=== PATIENT | female | born 1995 | race African-American/Black ===

== ENCOUNTER 2016-04-10 10:07 | Emergency (ER) | payer MEDICAID ==
[~2016-04-10] VITALS: Ht 152.4 cm; Wt 70.8 kg
[~2016-04-10 10:07] MED LIST: PREN-96 PO
[2016-04-10 10:14] VITALS: BP 118/70
== END 2016-04-10 15:08 | disposition home or self-care (01) ==
LOC: ER 10:07
DX: O46.92 Antepartum hemorrhage, unspecified, second trimester (principal); F12.10 Cannabis abuse, uncomplicated; Z3A.21 21 weeks gestation of pregnancy
CPT/HCPCS: 36415; 76805; 84702

== ENCOUNTER 2018-04-18 06:44 | Emergency (ER) | payer MEDICAID ==
[~2018-04-18] VITALS: Ht 147.3 cm; Wt 61.7 kg
[2018-04-18 08:19] LABS: Urine Bacteria NONE SEEN /hpf (None Seen); Urine Blood TRACE /uL (Negative); Urine Mucus FEW (None Seen); Urine Specific Gravity 1.026 (1.001-1.035); Urine WBC 1 /hpf (0 - 5)
[2018-04-18 08:39] LABS: Basophils # (auto) 0.1 uL; Basophils % (auto) 0.7 % (0.0-2.0); Eosinophils # (auto) 0.1 uL; Hematocrit 40.3 % (36.0-46.0); Hemoglobin 13.9 g/dL (12.2-16.2); Lymphocytes # (auto) 2.1 uL; Lymphocytes % (auto) 20.3 % (10.0-50.0); Mean Corpuscular Hemoglobin 32.1 pg (28.0-32.0); Mean Corpuscular Hgb Conc. 34.3 g/dL (32.0-36.0); Mean Corpuscular Volume 93.6 fL (80.0-100.0); Monocytes # (auto) 0.5 uL; Monocytes % (auto) 4.5 % (0.0-12.0); Neutrophils # (auto) 7.5 uL; Neutrophils % (auto) 73.5 % (37.0-80.0); Nucleated Red Blood Cells % 0.1 %; Platelet Count (auto) 257 10^3/uL (140-450); Red Blood Cells 4.31 10^6/uL (4.0-5.20); White Blood Cell 10.3 10^3/uL (4.4-10.8)
[2018-04-18 08:56] LABS: Albumin 3.6 g/dL (3.4-5.0); BUN/Creatinine Ratio 11.9; Calcium 8.6 mg/dL (8.5-10.1); Potassium 3.5 mmol/L (3.5-5.1)
[2018-04-18 08:58] LABS: Bilirubin, Total 0.5 mg/dL (0.2-1.0); Total Protein 7.5 g/dL (6.4-8.2)
[2018-04-18] MEDS ORDERED: SODIUM CHLORIDE 0.9% 1,000 ML IVB ONE (09:06)
[2018-04-18] MEDS ORDERED: ONDANSETRON HCL 4 MG/2 ML VIAL IV ONE (09:15)
[2018-04-18 10:45] VITALS: BP 127/66
== END 2018-04-18 11:26 | disposition home or self-care (01) ==
LOC: ER 06:44
DX: O20.0 Threatened abortion (principal); O21.9 Vomiting of pregnancy, unspecified; O26.891 Other specified pregnancy related conditions, first trimester; F12.10 Cannabis abuse, uncomplicated; R51 Headache; Z3A.01 Less than 8 weeks gestation of pregnancy
CPT/HCPCS: 36415; 76801; 80053; 81001; 81025; 84702; 85025; 94761; 96361; 96374; 99284; J2405; J7030

== ENCOUNTER 2018-05-29 09:10 | Emergency (ER) | payer MEDICAID ==
[~2018-05-29] VITALS: Ht 157.5 cm; Wt 68.0 kg
[2018-05-29 09:33] VITALS: BP 103/76
[2018-05-29 10:35] LABS: Urine WBC None Seen /hpf (0 - 5)
[2018-05-29 10:51] LABS: Basophils # (auto) 0 uL; Basophils % (auto) 0.2 % (0.0-2.0); Eosinophils # (auto) 0.1 uL; Eosinophils % (auto) 1.1 % (0.0-7.0); Hematocrit 37.8 % (36.0-46.0); Lymphocytes # (auto) 2.3 uL; Lymphocytes % (auto) 18.9 % (10.0-50.0); Mean Corpuscular Hgb Conc. 34.3 g/dL (32.0-36.0); Mean Corpuscular Volume 93.3 fL (80.0-100.0); Monocytes # (auto) 0.5 uL; Monocytes % (auto) 4.3 % (0.0-12.0); Neutrophils % (auto) 75.5 % (37.0-80.0); Platelet Count (auto) 255 10^3/uL (140-450); Red Blood Cells 4.05 10^6/uL (4.0-5.20); Red Cell Distribution Width 11.9 % (11.8-14.3)
[2018-05-29 11:15] LABS: Albumin 3.1 g/dL (3.4-5.0); Calcium 9.2 mg/dL (8.5-10.1); Potassium 3.9 mmol/L (3.5-5.1)
[2018-05-29 11:18] LABS: BUN/Creatinine Ratio 12.3; Bilirubin, Total 0.4 mg/dL (0.2-1.0); Total Protein 7.5 g/dL (6.4-8.2)
[2018-05-29 11:29] LABS: Urine Amorphous Crystal MANY /hpf (None Seen); Urine Bacteria NONE SEEN /hpf (None Seen); Urine Blood TRACE /uL (Negative); Urine Mucus FEW (None Seen); Urine Specific Gravity 1.021 (1.001-1.035)
== END 2018-05-29 15:30 | disposition home or self-care (01) ==
LOC: ER 09:10
DX: O26.892 Other specified pregnancy related conditions, second trimester (principal); R10.9 Unspecified abdominal pain; R19.7 Diarrhea, unspecified; O21.9 Vomiting of pregnancy, unspecified; Z3A.15 15 weeks gestation of pregnancy
CPT/HCPCS: 36415; 80053; 81001; 84702; 85025

== ENCOUNTER 2023-05-07 08:47 | Emergency (ER) | payer MEDICAID ==
[~2023-05-07] VITALS: Ht 149.9 cm; Wt 66.3 kg
[2023-05-07] MEDS: ONDANSETRON ODT 4 MG TAB PO ONE (09:04)
[2023-05-07 09:23] LABS: Basophils # (auto) 0 10 ^3/uL (0-0.2); Basophils % (auto) 0.3 % (0.0-2.0); Eosinophils # (auto) 0 10 ^3/uL (0-0.8); Eosinophils % (auto) 0.1 % (0.0-7.0); Hematocrit 39.2 % (36.0-46.0); Hemoglobin 13.1 g/dL (12.2-16.2); Lymphocytes # (auto) 1.9 10 ^3/uL (0.4-5.4); Mean Corpuscular Hemoglobin 31.4 pg (28.0-32.0); Mean Corpuscular Hgb Conc. 33.3 g/dL (32.0-36.0); Mean Corpuscular Volume 94.3 fL (80.0-100.0); Monocytes # (auto) 0.4 10 ^3/uL (0-1.3); Monocytes % (auto) 2.9 % (0.0-12.0); Neutrophils # (auto) 11.4 10 ^3/uL (1.6-8.6); Neutrophils % (auto) 82.7 % (37.0-80.0); Nucleated Red Blood Cells % 0.1 %; Red Blood Cells 4.16 10^6/uL (4.0-5.20); Red Cell Distribution Width 12.5 % (11.8-14.3); White Blood Cell 13.7 10^3/uL (4.4-10.8)
[2023-05-07 09:31] LABS: Alanine Aminotransferase 18 U/L (7-40); Albumin 4.5 g/dL (3.2-4.8); Alkaline Phosphatase 72 U/L (46-116); Anion Gap 11 (5-15); Aspartate Aminotransferase 19 U/L (13-40); BUN/Creatinine Ratio 17.3 (10.0-20.0); Bilirubin, Total 0.4 mg/dL (0.2-1.0); Blood Urea Nitrogen 14 mg/dL (9-23); Calcium 9.6 mg/dL (8.5-10.1); Carbon Dioxide 21 mmol/L (20-30); Chloride 108 mmol/L (98-107); Glucose 117 mg/dL (74-106); Potassium 3.9 mmol/L (3.5-5.1); Sodium 140 mmol/L (136-145); Total Protein 7.2 g/dL (5.7-8.2)
[2023-05-07] MEDS: SODIUM CHLORIDE 0.9% 1,000 ML IV ONE (09:31)
[2023-05-07 09:47] VITALS: BP 131/55; PULSE 75; RESP 18; O2SAT 98
[2023-05-07] MEDS: THIAMINE 100mg/ml INJ (200mg/2ml VIAL) IV ONE (09:47)
[2023-05-07] MEDS: cefTRIAXone 1GM/50ML D5W 50 ML IV ONE (11:39)
[2023-05-07 12:01] LABS: Urine WBC None Seen /hpf (0 - 5)
[2023-05-07] MEDS ORDERED: AMOX500T3 PO (12:11)
[2023-05-07 12:53] LABS: Amphetamine Screen, Urine Neg (NEGATIVE); Barbiturate Scree,Urine Neg (NEGATIVE); Benzodiazephine Screen, Urine Neg (NEGATIVE); Cocaine Screen, Urine Neg (NEGATIVE); Opiate Scree,Urine Neg (NEGATIVE)
[2023-05-07 12:54] LABS: Cannabinoid Screen, Urine Pos (NEGATIVE); Phencyclidine Screen, Urine Neg (NEGATIVE)
[2023-05-07 13:17] LABS: Urine Bacteria NONE SEEN /hpf (None Seen); Urine Blood 1+ /uL (Negative); Urine Budding Yeast LOADED /hpf (None Seen); Urine Clarity CLOUDY (Clear); Urine Color Yellow (Yellow); Urine Mucus FEW (None Seen); Urine Protein, UAD TRACE (Negative); Urine Specific Gravity 1.028 (1.001-1.035); Urine Urobilinogen Normal (Negative); Urine pH 5.5 (5.0-8.0)
== END 2023-05-07 12:24 | disposition home or self-care (01) ==
LOC: ER 08:47
DX: F10.10 Alcohol abuse, uncomplicated (principal); R10.2 Pelvic and perineal pain; I88.0 Nonspecific mesenteric lymphadenitis; F12.10 Cannabis abuse, uncomplicated; Z79.899 Other long term (current) drug therapy; Y90.8 Blood alcohol level of 240 mg/100 ml or more
CPT/HCPCS: 36415; 74176; 80053; 80307; 80320; 81001; 84702; 85025; 96361; 96365; 96375; 99285; J0696; J3411; J7030; Q0162

== ENCOUNTER 2024-05-18 11:39 | Emergency (ER) | payer MEDICAID ==
[~2024-05-18] VITALS: Ht 149.9 cm; Wt 67.6 kg
[~2024-05-18 11:39] MED LIST changes: +AMOX500T3 PO
[2024-05-18 11:50] VITALS: BP 132/88; PULSE 84; RESP 16; O2SAT 97
--- NOTE | 2024-05-18 11:51 | ED.PDOC ---
History of Present Illness HPI Comments 29F presents to the Er w/ no prior Hx associated to the c/c of Abnormal Vaginal Bleeding. Pt reports on the bleeding happening 30-45 minutes ago from 11:45 while being 8 weeks . Pt notes that it was "more than spotting" w/ cramps. Pt denies any pain currently. SHx of . Social Hx of occasional alcohol use and marijuana use, but denies tobacco use. Denies chills, fever, N/V/D, SOB, CP or other associated symptom's, modifiers, or recent injuries or sick contact at this time. Time Seen by MD: 11:45 Primary Care Provider: DENIES Reviewed Notes: Nurses Notes, Medications, Allergies Allergies: Coded Allergies: NO KNOWN ALLERGIES (Unverified , 09/24/12) Home Meds Active Scripts Amoxicillin Trihydrate (Amoxicillin) 500 Mg Tab, 1 TAB PO TID for 5 Days, #15 TAB Prov:ELIZA BERMAN MD 05/07/23 Reported Medications Vit W/ Ferrous Fumara ( One Daily) Daily Tab, 1 TAB PO DAILY, #90 TAB 3 Refills 01/30/14 Information Source: Patient Mode of Arrival: Ambulatory Severity: Moderate Timing: Minutes Duration: Since onset, Minutes Prehospital treatment: None Past Medical History PAST MEDICAL HISTORY: Denies Surgical History: (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 Family History Family History: Reviewed,noncontributory to illness, Unknown Social History Smoker: Non-Smoker Alcohol: Occasionally Drugs: Marijuana Lives In: Home Constitutional: denies: chills, diaphoresis, fatigue, fever, malaise, sweats, weakness, others EENTM: denies: blurred vision, double vision, ear bleeding, ear discharge, ear drainage, ear pain, ear ringing, eye pain, eye redness, hearing loss, mouth pain, mouth swelling, nasal discharge, nose bleeding, nose congestion, nose pain, photophobia, tearing, throat pain, throat swelling, voice changes, others Respiratory: denies: cough, hemoptysis, orthopnea, SOB at rest, shortness of breath, SOB with excertion, stridor, wheezing, others Cardiovascular: denies: chest pain, dizzy spells, diaphoresis, Dyspnea on exertion, edema, irregular heart beat, left arm pain, lightheadedness, palpitations, PND, syncope, others Gastrointestinal: denies: abdomen distended, abdominal pain, blood streaked bowels, constipated, diarrhea, dysphagia, difficulty swallowing, hematemesis, melena, nausea, poor appetite, poor fluid intake, rectal bleeding, rectal pain, vomiting, others Genitourinary: reports: abnormal vagina bleeding, (8weeks); denies: burning, dyspareunia, dysuria, flank pain, frequency, hematuria, incontinence, pain, vagina discharge, urgency, others Neurological: denies: dizziness, fainting, headache, left sided numbness, left sided weakness, numbness, paresthesia, pre-existing deficit, right sided numbness, right sided weakness, seizure, speech problems, tingling, tremors, weakness, others Musculoskeletal: denies: back pain, gout, joint pain, joint swelling, muscle pain, muscle stiffness, neck pain, others Integumetry: denies: bruises, change in color, change in hair/nails, dryness, laceration, lesions, lumps, rash, wounds, others Allergic/Immunocompromised: denies: Difficulty Healing, Frequent Infections, Hives, Itching, others Hematologic/Lymphatic: denies: anemia, blood clots, easy bleeding, easy bruising, swollen glands, others Endocrine: denies: excessive hunger, excessive sweating, excessive thirst, excessive urination, flushing, intolerance to cold, intolerance to heat, unexplained weight gain, unexplained weight loss, others Psychiatric: denies: anxiety, bipolar disorder, depression, hopeless, panic disorder, schizophrenia, sleepless, suicidal, others All Other Systems: Reviewed and Negative Physical Exam General Appearance: No Apparent Distress HEENT: Normal ENT Inspection, Pharynx Normal, TMs Normal Neck: Full Range of Motion, Non-Tender, Normal, Normal Inspection Respiratory: Chest Non-Tender, Lungs Clear, No Accessory Muscle Use, No Respiratory Distress, Normal Breath Sounds Cardiovascular: No Edema, No JVD, No Murmur, No Gallop, Normal Peripheral Pulses, Regular Rate/Rhythm Breast Exam: Deferred Gastrointestinal: No Organomegaly, Non Tender, No Pulsatile Mass, Normal Bowel Sounds, Soft Genitalia: Deferred Pelvic: Deferred Rectal: Deferred Extremities: No calf tenderness, Normal capillary refill, Normal inspection, Normal range of motion, Non-tender, No pedal edema Musculoskeletal : Apperance: Normal Neurologic: Alert, religious educator II-XII nml as Tested, No Motor Deficits, Normal Affect, Normal Mood, No Sensory Deficits Cerebellar Function: Normal Reflexes: Normal Skin: Dry, Normal Color, Warm Lymphatic: No Adenopathy Was a procedure done? Was a procedure done?: No Differential Dx Considerations may include: Threatened , complete , ectopic X-Ray, Labs, Meds, VS Vital Signs Date Time Temp Pulse Resp B/P (MAP) Pulse Ox O2 Delivery O2 Flow Rate FiO2 05/18/24 11:50 98.4 84 16 132/88 (103) 97 Lab Test 05/18/24 12:55 05/18/24 11:47 Range/Units Beta HCG, Quantitative 9167.4 H 1.5-4.2 mIU/mL Urine Color Light-yellow Yellow Urine Clarity Clear Clear Urine pH 6.0 5.0-9.0 Urine Specific [place] 1.029 1.001-1.035 Urine Protein Trace H Negative Urine Ketones Negative Negative Urine Blood 3+ H Negative /uL Urine Nitrite Negative Negative Urine Bilirubin Negative Negative Urine Urobilinogen Normal Negative mg/dL Urine Leukocyte Esterase Negative Negative /uL Urine RBC 7 0 - 4 /hpf Urine Microscopic WBC 3 0-5 /HPF Urine Squamous Epithelial Cells Few <5 /hpf Urine Bacteria Few H None Seen /hpf Urine Mucus Few None Seen Urine Glucose Normal Normal mg/dL The urine test is negative for infection The pelvic ultrasound shows: IMPRESSION: 1. Gestational sac in the uterus with no pole no heart rate no yolk sac. Recommend follow-up study. The quantitative hCG is 9167 The patient was discharged The patient will follow up with the primary care doctor The patient will return to the emergency department's condition worsens. Images Reviewed?: Images reviewed and evaluated by me Time of 1ST Reevaluation: 12:15 Reevaluation 1ST: Unchanged Patient Education/Counseling: Diagnosis, Treatment, Prognosis, Need For Follow Up Family Education/Counseling: No Family Present Departure 1 Departure Time of Disposition: 16:08 Impression: Primary Impression: Threatened Disposition: 01 HOME / SELF CARE / HOMELESS Condition: Fair Discharged With: Self Critical Care Note Critical Care Time?: No Stability Stability form required: No Heart Score Heart Score: Heart Score Response (Comments) Value History N/A 0 EKG N/A 0 Age N/A 0 Risk Factors N/A 0 Troponin N/A 0 Total 0 I personally scribed for BRENDA JOEL MD ([email or web address]) on 05/18/24 at 11:51. Electronically submitted by Macario Porter ([email or web address]). BRENDA JOEL MD May 18, 2024 11:51
[2024-05-18 14:14] LABS: Urine Bacteria FEW /hpf (None Seen); Urine Blood 3+ /uL (Negative); Urine Clarity Clear (Clear); Urine Color Light-Yellow (Yellow); Urine Mucus FEW (None Seen); Urine Protein, UAD TRACE (Negative); Urine Specific Gravity 1.029 (1.001-1.035); Urine Squamous Epithelial Cell FEW /hpf (<5); Urine Urobilinogen Normal (Negative); Urine WBC 3 /HPF (0-5)
--- NOTE | 2024-05-18 15:48 | DVH ---
OB ULTRASOUND <14 WEEKS: HISTORY: pain and bleeding TECHNIQUE: Multiple real-time grayscale sonographic images of the pelvis with duplex Doppler color f low, spectral and M-mode analysis. TRANSDUCERS: Transabdominal and transvaginal. FINDINGS: The uterus measures 10.5 x 6 x 6 cm The cervix small amount of free fluid in the cervix Right ovary measures 2.5 x 2.4 x 1.8 cm right ovarian volume is 5.7 cc with normal Doppler color flow Left ovary measures 3.7 x 3.6 x 2.1 cm. Volume of the left ovary is 14.74 cc. with normal Doppler col or flow 0.49 cm gestational sac is noted in the uterus with no pole no yolk sac no heart rate. IMPRESSION: 1. Gestational sac in the uterus with no pole no heart rate no yolk sac. Recommend follow -up study. HS:Y
== END 2024-05-18 17:10 | disposition home or self-care (01) ==
LOC: ER 11:39
DX: O20.0 Threatened abortion (principal); F15.90 Other stimulant use, unspecified, uncomplicated; Z3A.08 8 weeks gestation of pregnancy; Z98.890 Other specified postprocedural states; Z79.899 Other long term (current) drug therapy
CPT/HCPCS: 36415; 76801; 76817; 81001; 84702

== ENCOUNTER 2024-09-26 09:12 | Emergency (ER) | payer MEDICAID ==
[~2024-09-26] VITALS: Ht 149.9 cm; Wt 67.2 kg
[2024-09-26 09:19] VITALS: TEMP 98.6
[2024-09-26] MEDS: LIDOCAINE 1% HCL (LOCAL ANESTH.) INJ 20ML MDV ID ONE (09:23)
[2024-09-26] MEDS: ACETAMINOPHEN 325 MG TAB PO ONE (09:24)
[2024-09-26] MEDS: TETANUS-DIPTH-ACEL PERTUSSIS 0.5ML SYR Tdap IM ONE (09:25)
--- NOTE | 2024-09-26 09:44 | ED.PDOC ---
History of Present Illness HPI Comments 29-year-old female presents with a chief complaint of puncture wound to right thumb. Patient was combing her daughters hair when her knee lifted and hit the comb that has a long metal end and it punctured directly in the skin just underneath the right thumb. Patient reports that the pain is exacerbated when the comb moves in her hand. Chief Complaint: Puncture Wound Time Seen by MD: 09:16 Primary Care Provider: ADDY Gonzalez Notes: Medications, Allergies Allergies: Coded Allergies: NO KNOWN ALLERGIES (Unverified , 09/24/12) Home Meds Active Scripts Amoxicillin Trihydrate (Amoxicillin) 500 Mg Tab, 1 TAB PO TID for 5 Days, #15 TAB Prov:ELIZA BERMAN MD 05/07/23 Reported Medications Vit W/ Ferrous Fumara ( One Daily) Daily Tab, 1 TAB PO DAILY, #90 TAB 3 Refills 01/30/14 Information Source: Patient Mode of Arrival: Ambulatory Severity: Moderate Timing: Minutes Duration: Since onset Prehospital treatment: None Past Medical History PAST MEDICAL HISTORY: Denies Surgical History: 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 History Family History Family History: Reviewed,noncontributory to illness, Unknown Social History Smoker: Non-Smoker Alcohol: Occasionally Drugs: Marijuana Lives In: Home Constitutional: denies: chills, diaphoresis, fatigue, fever, malaise, sweats, weakness, others EENTM: denies: blurred vision, double vision, ear bleeding, ear discharge, ear drainage, ear pain, ear ringing, eye pain, eye redness, hearing loss, mouth pain, mouth swelling, nasal discharge, nose bleeding, nose congestion, nose medina n, photophobia, tearing, throat pain, throat swelling, voice changes, others Respiratory: denies: cough, hemoptysis, orthopnea, SOB at rest, shortness of breath, SOB with excertion, stridor, wheezing, others Cardiovascular: denies: chest pain, dizzy spells, diaphoresis, Dyspnea on exertion, edema, irregular heart beat, left arm pain, lightheadedness, palpitations, PND, syncope, others Gastrointestinal: denies: abdomen distended, abdominal pain, blood streaked bowels, constipated, diarrhea, dysphagia, difficulty swallowing, hematemesis, melena, nausea, poor appetite, poor fluid intake, rectal bleeding, rectal pain, vomiting, others Genitourinary: denies: abnormal vagina bleeding, burning, dyspareunia, dysuria, flank pain, frequency, hematuria, incontinence, pain, , vagina discharge, urgency, others Neurological: denies: dizziness, fainting, headache, left sided numbness, left sided weakness, numbness, paresthesia, pre-existing deficit, right sided numbness, right sided weakness, seizure, speech problems, tingling, tremors, weakness, others Musculoskeletal: denies: back pain, gout, joint pain, joint swelling, muscle pain, muscle stiffness, neck pain, others Integumetry: reports: wounds; denies: bruises, change in color, change in hair/nails, dryness, laceration, lesions, lumps, rash, others Allergic/Immunocompromised: denies: Difficulty Healing, Frequent Infections, Hives, Itching, others Hematologic/Lymphatic: denies: anemia, blood clots, easy bleeding, easy bruising, swollen glands, others Endocrine: denies: excessive hunger, excessive sweating, excessive thirst, excessive urination, flushing, intolerance to cold, intolerance to heat, unexplained weight gain, unexplained weight loss, others Psychiatric: denies: anxiety, bipolar disorder, depression, hopeless, panic disorder, schizophrenia, sleepless, suicidal, others All Other Systems: Reviewed and Negative Physical Exam General Appearance: Moderate Distress, Normal, Other (PUNCTURE WOUND TO RIGHT THUMB) HEENT: Normal ENT Inspection, Pharynx Normal, TMs Normal Neck: Full Range of Motion, Non-Tender, Normal, Normal Inspection Respiratory: Chest Non-Tender, Lungs Clear, No Accessory Muscle Use, No Respiratory Distress, Normal Breath Sounds Cardiovascular: No Edema, No JVD, No Murmur, No Gallop, Normal Peripheral Pulses, Regular Rate/Rhythm Breast Exam: Deferred Gastrointestinal: No Organomegaly, Non Tender, No Pulsatile Mass, Normal Bowel Sounds, Soft Genitalia: Deferred Pelvic: Deferred Rectal: Deferred Extremities: No calf tenderness, Normal capillary refill, Normal inspection, Normal range of motion, Non-tender, No pedal edema Musculoskeletal : Apperance: Normal Neurologic: Alert, boats renter II-XII nml as Tested, No Motor Deficits, Normal Affect, Normal Mood, No Sensory Deficits Cerebellar Function: Normal Reflexes: Normal Skin: Dry, Normal Color, Warm Lymphatic: No Adenopathy Was a procedure done? Was a procedure done?: No Foreign Body Removal Foreign body in: Skin Anesthetic: Lidocaine, Without Epi Prep: Betadine Procedure: Removed Informed consent obtained: Yes Risks/benefits/alt described: Yes Differential Dx Considerations may include: Foreign object puncture wound X-Ray, Labs, Meds, VS Vital Signs Date Time Temp Pulse Resp B/P (MAP) Pulse Ox O2 Delivery O2 Flow Rate FiO2 09/26/24 09:19 98.6 100 17 142/86 (104) 100 98.6 Current Medications Medications (Trade) Dose Ordered Sig/Johnathan Route Start Time Stop Time Status Last Admin Acetaminophen (Tylenol Tablet) 650 mg ONCE ONCE PO 09/26/24 09:30 09/26/24 09:31 DC 09/26/24 09:24 Diphtheria/ Tetanus/Acell Pertussis (Boostrix T-Dap) 0.5 ml ONCE ONCE IM 09/26/24 09:30 09/26/24 09:31 DC 09/26/24 09:25 Time of 1ST Reevaluation: 09:42 Reevaluation 1ST: Unchanged Patient Education/Counseling: Diagnosis, Treatment Family Education/Counseling: Diagnosis, Treatment SEPSIS Sepsis Screen Date sepsis recognized/suspect: Sep 26, 2024 Time Sepsis recognized/suspect: 918 Recent Procedure: No On Antibiotic Therapy: No Respiratory Rate >20: No Heart Rate >90: No Temp<36 C (96.8 F) or >38.3 C: No SBP <90 or MAP <65 mmHG: No New Acute Mental Status Change: No Is the patient on CPAP, BIPAP,: No Vital Signs Date Time Temp Pulse Resp B/P (MAP) Pulse Ox O2 Delivery O2 Flow Rate FiO2 09/26/24 09:19 98.6 100 17 142/86 (104) 100 98.6 Medications Medications Dose Ordered Sig/Johnathan Route Start Time Stop Time Status Last Admin Dose Admin Acetaminophen 650 mg ONCE ONCE PO 09/26/24 09:30 09/26/24 09:31 DC 09/26/24 09:24 Diphtheria/ Tetanus/Acell Pertussis 0.5 ml ONCE ONCE IM 09/26/24 09:30 09/26/24 09:31 DC 09/26/24 09:25 Departure 1 Departure Time of Disposition: 09:46 (Patient had the object removed. Patient was given tetanus prophylaxis. We will discharge patient home with outpatient follow up) Impression: Primary Impression: Acute foreign body of right hand Qualified Codes: S60.551A - Superficial foreign body of right hand, initial encounter Disposition: HOME / SELF CARE / HOMELESS Condition: Stable Additional Instructions: The object was removed from your hand. You received a tetanus shot today. If the area becomes more red, tender, swelling, then please go to the ER. For pain you can take the followinam: Ibuprofen 400mg with food Noon: Acetaminophen 1000mg 4pm: Ibuprofen 400mg with food 8pm: Acetaminophen 1000mg You should follow up with your regular doctor within one week to ensure you are doing better. If your symptoms worsen or you have any other concerns then please return to the ER. Discharged With: Self Critical Care Note Critical Care Time?: No Stability Stability form required: No Heart Score Heart Score: Heart Score Response (Comments) Value History N/A 0 EKG N/A 0 Age N/A 0 Risk Factors N/A 0 Troponin N/A 0 Total 0 I personally scribed for ESTEBAN GUERRERO MD ([email or web address]) on 09/26/24 at 09:44. Electronically submitted by Chance Salomon ([email or web address]). ESTEBAN GUERRERO MD Sep 26, 2024 09:44
[2024-09-26 10:05] VITALS: BP 129/87; PULSE 69; RESP 18; O2SAT 98
== END 2024-09-26 10:09 | disposition home or self-care (01) ==
LOC: ER 09:12
DX: S60.351A Superficial foreign body of right thumb, initial encounter (principal); Z98.890 Other specified postprocedural states; W22.8XXA Striking against or struck by other objects, initial encounter; Y93.89 Activity, other specified; Y92.89 Other specified places as the place of occurrence of the external cause; Y99.8 Other external cause status
CPT/HCPCS: 90471; 90715; 99284; J2003